=== PATIENT | male | born 1970 | race Caucasian/White ===

== ENCOUNTER 2019-07-17 08:15 | Outpatient (RCR) | payer OTHER, SELFPAY ==
[2019-07-03 09:04] VITALS: BP 149/108; PULSE 58; RESP 18; TEMP 37.1; BMI 33.5
[2019-07-03 09:54] VITALS: BMI 33.5
[2019-07-03 10:07] VITALS: BMI 33.5
[2019-07-03 10:10] VITALS: BMI 33.5
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
[2019-07-10 08:28] VITALS: BP 142/103; PULSE 67; RESP 16; TEMP 36.7; BMI 33.5
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
[2019-07-17 08:58] VITALS: BP 150/87; PULSE 69; RESP 18; TEMP 36.6; BMI 33.5
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
== END 2019-07-27 23:59 ==
LOC: WC 08:15
PROVIDERS: Family Provider Nurse Practitioner; PCP Nurse Practitioner; Referring Provider Nurse Practitioner; Visit Provider Nurse Practitioner
DX: S91.031A Puncture wound without foreign body, right ankle, initial encounter (principal); S81.031A Puncture wound without foreign body, right knee, initial encounter; L08.9 Local infection of the skin and subcutaneous tissue, unspecified; V28.9XXA Unspecified motorcycle rider injured in noncollision transport accident in traffic accident, initial encounter
CPT/HCPCS: 11042; 87070; 87075; 87077; 87186; 87205; 99213; G0463

== ENCOUNTER 2019-08-07 09:30 | Outpatient (RCR) | payer OTHER, SELFPAY ==
[2019-07-28 01:11] VITALS: BP 150/87; PULSE 69; RESP 18; TEMP 36.6
[2019-07-31 09:39] VITALS: BP 157/86; PULSE 63; RESP 18; TEMP 36.4; BMI 33.5
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
== END 2019-08-27 23:59 ==
LOC: WC 09:30
PROVIDERS: Family Provider Nurse Practitioner; PCP Nurse Practitioner; Referring Provider Nurse Practitioner; Visit Provider Nurse Practitioner
DX: S91.031A Puncture wound without foreign body, right ankle, initial encounter (principal); S81.031A Puncture wound without foreign body, right knee, initial encounter; V28.9XXA Unspecified motorcycle rider injured in noncollision transport accident in traffic accident, initial encounter; L08.9 Local infection of the skin and subcutaneous tissue, unspecified
CPT/HCPCS: 11042; 87070; 87075; 87077; 87186; 87205

== ENCOUNTER → 2024-01-20 | Outpatient (CLI) | payer OTHER, SELFPAY ==
[2024-01-20 07:03] LABS: Color, Urine Yellow (Yellow); Glucose, Dipstick Normal (Normal); Ketone-Dipstick 5 mg/dl (Negative); Leukocyte Esterase-Dipstick Negative /ul (Negative); Nitrite-Dipstick Negative (Negative); Occult Blood-Urine 10 /ul (Negative); Protein-Dipstick Negative (Negative); Urine Bilirubin Dipstick Negative (Negative); Urine Clarity Clear (Clear); Urine Urobilinogen Normal (Normal)
[2024-01-20 07:51] LABS: Anion Gap 3 (5-15); BUN 23 mg/dL (7-18); BUN/Creat Ratio 16.7 RATIO (10-20); Calcium,Total 8.9 mg/dL (8.5-10.1); Chloride 107 mmol/L (98-107); Cholesterol 183 mg/dL (200); Creatinine, Serum 1.38 mg/dL (0.70-1.30); EST Glomerular Filtration Rate 57 mL/min (>60); Est Glom Filt Rate - Afr Amer 69 mL/min (>60); Glucose 103 mg/dL (74-106); High Density Lipoprotein 39 mg/dL; Potassium 4.4 mmol/L (3.5-5.1); Sodium Level 138 mmol/L (136-145); Triglycerides 168 mg/dL; Very Low Density Lipoprotein 34 mg/dL (5-40)
[2024-01-20 14:10] LABS: PSA,Total - Annual Screen 2.14 ng/mL (0.00-4.00)
== END | disposition home or self-care (01) ==
PROVIDERS: PCP Nurse Practitioner Family; Referring Provider Nurse Practitioner Family; Visit Provider Nurse Practitioner Family
DX: Z12.5 Encounter for screening for malignant neoplasm of prostate (principal); E78.1 Pure hyperglyceridemia; N18.2 Chronic kidney disease, stage 2 (mild); R03.0 Elevated blood-pressure reading, without diagnosis of hypertension
CPT/HCPCS: 36415; 80048; 80061; 81002; 84153; G0103

== ENCOUNTER → 2024-11-27 | Outpatient (CLI) | payer OTHER, SELFPAY ==
--- NOTE | 2024-11-27 15:29 | VDLE_ITS ---
Reason For Study: Left leg pain RIGHT LEFT CFV is compressible, spontaneous, phasic, GSV is normal. competent and demonstrates normal CFV is compressible, spontaneous, phasic, augmentation. competent, and demonstrates normal Procedure augmentation. This is a venous duplex using B-mode, color FV is compressible, spontaneous, phasic, flow and spectral Doppler. competent and demonstrates normal Exam performed in department. augmentation. A preliminary report was called and/or faxed POP V is compressible, spontaneous, phasic, to [facility]YN[facility]. competent and demonstrates normal augmentation. T/P Trunk is compressible. PTV is compressible. LT PerV is compressible. Nonvascularized structure is noted in the left proximal calf muscle. VL/Venous Duplex US, Unilateral Interpretation Summary Deep veins of the left lower extremity are patent and compressible segmentally. There is no evidence of left lower extremity deep vein thrombosis. Valvular competence appears intac t within the proximal deep venous system on the left . The left great saphenous vein appears patent a nd compressible segmentally. A non-vascular, hypoechoic structure is noted in the muscular port ion of the left proximal calf. This may represent a hematoma or seroma. Clinical correlation is advised. The right common femoral vein is patent and compressible . Ordering Physician: Meli Owens Referring Physician: Meli Owens Performed By: Ellen Short RVT
== END | disposition home or self-care (01) ==
LOC: CVS 15:26
PROVIDERS: PCP Nurse Practitioner Family; Referring Provider Nurse Practitioner Family; Visit Provider Nurse Practitioner Family
DX: M79.662 Pain in left lower leg (principal)
CPT/HCPCS: 93971

== ENCOUNTER 2025-02-08 05:50 | Day surgery (SDC) | payer OTHER, SELFPAY ==
[2025-02-08] VITALS (12 sets, daily range): BP systolic 106–154; BP diastolic 77–94; PULSE 65–88; RESP 16–18; TEMP 35.3–37.2; O2SAT 92–97; BMI 35.5
[2025-02-08] MEDS: 0.9% Normal Saline (1000mL) 1,000 ML 15 ML IV (06:31)
--- NOTE | 2025-02-08 07:02 | PRE.ANES_ITS ---
ASA Classification* ASA Classification ASA Classification: 2 Assessment & Plan Anesthesia* Anesthesia Assessment Anesthesia Assessment: Discussed sedation and/or anesthesia options, risks, benefits, and alternatives with patient/parents/legal guardian/POA. Questions invited. The patient/parents/legal guardian/POA seems to understand and agrees to proceed with anesthesia plan. Reviewed the physical assessment, medical history, allergy history and patient home medications list prior to surgery/procedure/anesthetic and documented any changes. Performed airway and anesthesia risk assessments. Anesthesia Type Anesthesia Type: Spinal (HX of ) and Block Anesthesia Focused Assessment* Temperature: 98.7 F Pulse Rate: 69 Blood Pressure: 130/86 Respiratory Rate: 18 Pulse Ox: 92 Airway Assessment Mouth opens: >3 cm Mallampati Score: II Focused Labs Anesthesia Preop lab: CBC CHEMISTRY Potassium 4.4 mmol/L (3.5-5.1) 01/20/24 05:55 01/20/24 Sodium 138 mmol/L (136-145) 01/20/24 05:55 01/20/24 BUN 23 mg/dL (7-18) H 01/20/24 05:55 01/20/24 Creatinine 1.38 mg/dL (0.70-1.30) H 01/20/24 05:55 Glucose 103 mg/dL (74-106) 01/20/24 05:55 01/20/24 COAG Pre-Assessment Diagnosis/Proposed Procedure Planned Operative Procedure(s): LEFT KNEE ARTHROSCPY WITH MEDIAL MENISECTOMY Anesthesia History 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 When Was Last Pacemaker Check QUESTION #4 FULL TEXT: You/Your Family Experience fever (hyperthermia) with Anesthesia Last Oral Intake Last Oral intake: Last Oral Intake NPO since 22:00 02/08/25 06:21 Meds taken in AM with sips of Yes 02/08/25 06:21 water? Meds patient instructed to take am of surgery PONV PONV - automobile relocation engineer: PONV - automobile relocation engineer Female No 02/03/25 15:17 HX of Motion Sickness No 02/03/25 15:17 HX of N/V After Surgery No 02/03/25 15:17 Non-Smoker No 02/03/25 15:17 Duration of Surgery greater Yes 02/03/25 15:17 than 60 minutes Number of Risk Factors 1 02/03/25 15:17 PONV Score Low Risk 02/03/25 15:17 Height & Weight Height & Weight: Anesthesia: Height & Weight Height 5 ft 10 in 02/08/25 06:21 Weight: 112.4 kg 02/08/25 06:21 Body Mass Index (BMI) 35.5 02/08/25 06:21 Respiratory Assessment Respiratory Assessment - automobile relocation engineer: Respiratory Tract Infection Hx - automobile relocation engineer Hx Respiratory Tract Infection No 02/03/25 15:17 STOP Sleep Apnea STOP Sleep Apnea - automobile relocation engineer: STOP Sleep Apnea - automobile relocation engineer Hx Hypertension Yes: CONTROLLED WITH MED 02/03/25 15:17 Hx Sleep Apnea Yes 02/03/25 15:17 CPAP Yes 02/03/25 15:17 BIPAP No 02/03/25 15:17 Do you snore loudly (louder than talking or can be heard Do you often feel tired/ fatigued/ sleepy during daytime? Has anyone observed you stop breathing during sleep? STOP Results Positive 02/03/25 15:17 QUESTION #5 FULL TEXT : Do you snore loudly (louder than talking or can be heard through closed doors)? Tobacco Use History Tobacco Use History - automobile relocation engineer: Tobacco Use History - automobile relocation engineer Tobacco Use Smoking Status Current every day smoker 02/03/25 15:17 Hx Tobacco Use Yes 02/03/25 15:17 Years Smoking Packs Smoked per Day Smoking Cessation Date was within the last 15 years Hx Smoking Cessation Date Hx Smoking Cessation Counseling Hematologic Medial History Hematologic Hx - automobile relocation engineer: Hematologic Medical Hx - documentation specialist Hx of Blood Transfusion No 02/03/25 15:17 Hx of Transfusion in last 3 No 02/03/25 15:17 Months Date of Last Transfusion (if within last 3 months) Ever experience any problems No 02/03/25 15:17 with transfusion(s)? Specify any problems Hx of Preganancy in last 3 N/A 02/03/25 15:17 Months Nurse Filling Out Transfusion DSCHRIBER 02/03/25 15:17 & Questions: Date: 02/03/25 02/03/25 15:17 Time: 15:18 02/03/25 15:17 Patient unable to answer at this time (ie. confused, unrespo /Reproduction History /Reproductive History - automobile relocation engineer: /Reproductive Hx- automobile relocation engineer Hx Now No 02/03/25 15:17 Gestational Age (in weeks): EDC: Hx Hx Para Hx Section SAB No 02/03/25 15:17 Active Medications Active Medications: Current Medications Generic Name Dose Route Start Last Admin Trade Name Freq PRN Reason Stop Dose Admin Hydrocodone Bitart/Acetaminophen 1 - 2 tablet 02/08/25 06:50 Hydrocodone Bitartrate/Apap 5/325 Tablet PO Q6H PRN PRN Pain Score 4-10 Cefazolin Sodium 1 gm in 50 mls @ 150 mls/hr 02/08/25 07:30 IV 02/08/25 07:49 PREOP ONE Sodium Chloride 1,000 mls @ 15 mls/hr 02/08/25 06:00 02/08/25 06:31 IV 15 mls/hr .Q48H ANEL Administration Ondansetron HCl 4 mg 02/08/25 06:50 Ondansetron 4 Mg/2 Ml Vial IV Q8H PRN PRN NAUSEA/VOMITING PFSH Medical History Tinnitus Loss of hearing Wears glasses Alcohol use Arthritis Back pain Injury of back CPAP (continuous positive airway pressure) dependence Chewing tobacco dependence Leg cramps History of edema History of pain when walking Hypertension Fracture Hx of fracture of arm Home Medications ?Medication ?Instructions ?Recorded ?Last Taken ?Type duloxetine 60 mg capsule,delayed 60 mg PO DAILY 02/08/25 05:00 History release lisinopril 20 mg tablet 20 mg PO DAILY 02/03/2501/26 History Allergy/AdvReac Type Severity Reaction Status Date / Time No Known Allergies Allergy Verified 02/08/25 06:20 Surgical History Hx of tonsillectomy Hx of hand surgery Social History Smoking Status: Current every day smoker tobacco type: smokeless tobacco Review of Systems (Anesthesia) ROS Narrative System reviewed and no additional complaints, except as documented.
[2025-02-08] MEDS: Cefazolin 1 GM/50 ML BAG IV (07:25)
[2025-02-08] MEDS: Epinephrine (1 mg/ml) 1 MG/ML VIAL (07:51)
--- NOTE | 2025-02-08 08:01 | OP.PCM_ITS ---
Operative Report (Standard) Operative Information Date of Procedure: 02/08/25 Pre-Operative Diagnosis: Left knee medial meniscus tear, chondromalacia Post-Operative Diagnosis: Left knee medial meniscus tear, chondromalacia Surgery/Procedure Performed: 1. Left knee arthroscopic partial medial meniscectomy 2. 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 Type of Anesthesia: Spinal RN Documented Start/Stop Times: Operation Date: 02/08/25 07:30 Case Time Into Pre-Op 02/08/25 05:55 Anesthesia Start 02/08/25 07:24 Into Room 02/08/25 07:24 Procedure Start 02/08/25 07:41 Procedure End 02/08/25 08:01 Anesthesia End 02/08/25 08:09 Out of Room 02/08/25 08:09 Into Recovery 02/08/25 08:11 Into Phase II Recovery 02/08/25 09:19 Out of Recovery 02/08/25 09:19 Procedure Start Time: 07:41 Procedure Stop Time: 08:01 Select all DRAINS/GRAFTS/IMPLANTS that apply: None Special Medications: 1 g Ancef Estimated Blood Loss: 5 mL Fluids Replaced: 800 mL crystalloid Specimen collected: No Description of surgery: On the date of the procedure, the patient's L lower extremity was marked in the preoperative area. Patient was brought back to the operating room where they were transferred to the bed. Anesthesia assumed control of the C-spine airway and administered anesthetic. All bony prominences were identified and well- padded and the L leg was placed in the arthroscopic leg motta. The contralateral leg was then draped over the bed and well-padded. There was padding underneath both sciatic nerves. The foot of the bed was then dropped and the L leg was prepped in a sterile fashion. The surgeon then scrubbed. Upon reentering the room, the operative leg was draped in a standard orthopedic fashion. A timeout was called, everyone agreed upon the side, the site, the procedure to be performed, patient's identity and antibiotics given. Incisions were marked out for the medial and lateral infrapatellar portals. Esmarch bandage was then used to exsanguinate the leg and tourniquet was placed at 250 mmHg. At this time, the lateral portal incision was made in a vertical fashion. The trocar was placed into the joint. The camera was then placed and the patellofemoral joint was visualized. The patella did appear to have grade 2 chondral changes. The trochlea appeared to have minimal chondral changes. We then directed our attention to the medial gutter where there was no foreign body. Then directed our attention to the medial joint compartment. There were grade 3 chondral changes on the medial distal femur, grade 2 chondral changes on the medial tibial plateau. The medial meniscus had a complex posterior tear. The medial portal was then placed under direct visualization using a spinal needle an 11 blade scalpel. Once this was done a probe was placed in the joint and the meniscus was probed finding confirming the complex posterior tear. The biters and mabel were then used sequentially to debriding get rid of any free edges that could be a source of pain and catching in the meniscus tear. Additionally the areas of fibrillated cartilage were debrided with the shaver perform the medial compartment chondroplasty once we felt medial meniscus tear was adequately debrided, we again visualized the joint and noted the meniscus tear was adequately debrided. Attention was then turned towards the notch where the anterior cruciate ligament was intact. PCL was visualized and appeared intact. Attention was then directed towards the lateral compartment where the lateral distal femur had minimal chondral changes, the lateral proximal tibia had minimal chondral changes. The lateral meniscus had intact. We then directed our attention to the lateral gutter, which was visualized and no free bodies were noted. At this time the wound was copiously irrigated out with normal saline with epinephrine. The wound was closed with 4-0 nylon and 0.5% Marcaine and epinephrine were injected for local anesthetic. Xeroform was placed over the incision. Sterile dressing was placed. Compressive dressing was placed. Tourniquet was let down. For that there was then placed up. Patient was awakened by anesthesia patient was transferred to the PACU for recovery in stable condition. Postoperative plan: Patient will be made weight-bear as tolerated. Return to activities as tolerated. He will come to the office in 2 weeks for postoperative wound check and suture removal. If he is doing well that time he can follow-up as needed. Aspirin 81 mg twice a day for DVT prophylaxis Surgical Findings: Grade II-III chondromalacia medial compartment Complications Complications: No Admit VTE Documentation VTE Present on Admission: No VTE Mechan Device Prophylaxis: SCD's and Thigh High ALVERTO Hose VTE Pharm Prophylaxis ordered?: Yes
--- NOTE | 2025-02-08 08:18 | PCM.POST.ANE ---
Anesthesia: Postop Eval I Current Vital Signs Temperature: 98 F Pulse Rate: 80 Blood Pressure: 115/78 Respiratory Rate: 16 Pulse Ox: 97 Oxygen Delivery Method: Room Air Assessment Airway patent: Yes Spontaneous unlabored respirations: Yes Mental status: Calm nausea: No Vomiting: No Anesthesia Complication: No Fluid Hydration Crystalloid volume administer (ml): 800 Total IV fluid infused: 800 Progress Note Anesthesia document: Postop Eval 1 completed: Yes
--- NOTE | 2025-02-08 09:08 | POSTOPAN2_ITS ---
Anesthesia Postop Eval I Sum Postop Eval Completion status Anesthesia document: Postop Eval 1 completed: Yes Anesthesia Postop Eval I Summary Anesthesia Postop Eval I Summary: Anesthesia Postop Eval I: Assessment Summary Airway patent Yes 02/08/25 08:19 IT SECURITY [email or web address] Spontaneous unlabored Yes 02/08/25 08:19 IT SECURITY SPECIALIST.JDEF respirations Mental status Calm 02/08/25 08:19 IT SECURITY SPECIALIST.JDEF nausea No 02/08/25 08:19 IT SECURITY SPECIALIST.JDEF Vomiting No 02/08/25 08:19 IT SECURITY SPECIALIST.JDEF Anesthesia Postop Eval I: Fluid Summary Crystalloid volume administer 800 02/08/25 08:19 IT SECURITY SPECIALIST.JDEF (ml) Colloids volume administered ( ml) Blood Product volume administered (ml) Total IV fluid infused 800 02/08/25 08:19 IT SECURITY SPECIALIST.JDEF Anesthesia Postop Eval I: Summary Notes Anesthesia Complication No 02/08/25 08:19 IT SECURITY SPECIALIST.JDEF Anesthesia Complication Comment: Post-operative progress note Anesthesia: Postop Eval II Evaluation Mental status: Awake Pain Level: 0 nausea: No Vomiting: No
--- NOTE | 2025-02-08 09:08 | PCM.POSTANE2 ---
Anesthesia Postop Eval I Sum Postop Eval Completion status Anesthesia document: Postop Eval 1 completed: Yes Anesthesia Postop Eval I Summary Anesthesia Postop Eval I Summary: Anesthesia Postop Eval I: Assessment Summary Airway patent Yes 02/08/25 08:19 SENIOR PLANNING [email or web address] Spontaneous unlabored Yes 02/08/25 08:19 SENIOR PLANNING MANAGER.JDEF respirations Mental status Calm 02/08/25 08:19 SENIOR PLANNING MANAGER.JDEF nausea No 02/08/25 08:19 SENIOR PLANNING MANAGER.JDEF Vomiting No 02/08/25 08:19 SENIOR PLANNING MANAGER.JDEF Anesthesia Postop Eval I: Fluid Summary Crystalloid volume administer 800 02/08/25 08:19 SENIOR PLANNING MANAGER.JDEF (ml) Colloids volume administered ( ml) Blood Product volume administered (ml) Total IV fluid infused 800 02/08/25 08:19 SENIOR PLANNING MANAGER.JDEF Anesthesia Postop Eval I: Summary Notes Anesthesia Complication No 02/08/25 08:19 SENIOR PLANNING MANAGER.JDEF Anesthesia Complication Comment: Post-operative progress note Anesthesia: Postop Eval II Evaluation Mental status: Awake Pain Level: 0 nausea: No Vomiting: No
== END 2025-02-08 13:25 | disposition home or self-care (01) ==
LOC: SDC 05:50 → AC 05:52
PROVIDERS: PCP Nurse Practitioner Family; Referring Provider Specialist; Visit Provider Specialist
PROC: (CPT 29870; principal; 2025-02-08 07:10)
DX: S83.232A Complex tear of medial meniscus, current injury, left knee, initial encounter (principal); M94.262 Chondromalacia, left knee; M71.22 Synovial cyst of popliteal space [Baker], left knee; M65.862 Other synovitis and tenosynovitis, left lower leg; M17.12 Unilateral primary osteoarthritis, left knee; I10 Essential (primary) hypertension; F17.220 Nicotine dependence, chewing tobacco, uncomplicated; E66.9 Obesity, unspecified; Z68.37 Body mass index [BMI] 37.0-37.9, adult; Z71.3 Dietary counseling and surveillance; Z79.899 Other long term (current) drug therapy
CPT/HCPCS: 29881; 01400; 64447